=== PATIENT | male | born 1970 | race Caucasian/White ===

== ENCOUNTER 2017-12-09 20:45 | Emergency (ER) | payer OTHER ==
[~2017-12-09] VITALS: Ht 175.3 cm; Wt 129.3 kg
[~2017-12-09 20:45] MED LIST: AUGMENTIN 500-1 EACH PO; BENICAR HCT PO; COZAAR 50MG TAB50 MG PO; HALFPRIN162 MG PO; HYDRODIURIL 2525 MG PO; METOPROLOL SUC100 MG PO; NORVASC 10MG10 MG PO; PEPCID20 MG PO; PEPCID40 MG PO; REGLAN10 MG PO; TOPROL XL 100100 MG PO; TRIBENZOR 10 MG1 TA1 PO; [UNRECOGNIZED DRUG - OTHER] PO
--- NOTE | 2017-12-09 21:09 | ED DYSPNEA/ASTHMA COMPLAINT ---
History of Present Illness General Chief Complaint: Dyspnea (COPD, CHF, Other) Stated Complaint: SHORTNESS OF BREATH Source: patient, family, old records Exam Limitations: no limitations Vital Signs & Intake/Output Vital Signs & Intake/Output Vital Signs Date Time Temp Pulse Resp B/P B/P Pulse O2 O2 Flow FiO2 Mean Ox Delivery Rate 12/09 2229 97.3 80 18 180/95 93 Room Air 12/097 92 12/09 2058 98.4 90 24 178/112 94 Room Air ED Intake and Output 12/10 0000 12/09 1200 Intake Total Output Total Balance Patient 285 lb Weight Weight Reported by Patient Measurement Method Allergies Coded Allergies: NO KNOWN ALLERGIES (09/03/16) Reconcile Medications Albuterol Sulfate 2.5 MG/3 ML (0.083 %) VIAL.NEB 1 Vial INH/VERA Q4P PRN bronchitis Albuterol Sulfate (Proair Hfa) 90 MCG HFA.AER.AD 2 PUF INH Q4-6 PRN PRN bronchitis Amlodipine (Norvasc 10MG) 10 MG TABLET 1 TAB PO DAILY HYPERTENSIO Aspirin (Halfprin) 162 MG ECT 1 TAB PO DAILY heart health Augmentin (Augmentin 500-125 Tablet) 500 MG-125 MG TABLET 1 TAB PO BID dog bite Azithromycin 250 MG TABLET 1 DP PO AD bronchitis 2 the first day followed by 1 for days 2-5 Famotidine (Pepcid) 40 MG TABLET 40 MG PO D PRN HEARTBURN (Reported) Hydrochlorothiazide (Hydrodiuril 25 MG Tab) 25 MG TABLET 1 TAB PO DAILY HYPERTENSION Losartan (Cozaar) 50 MG TAB 1 TAB PO DAILY HYPERTENSION Methylprednisolone. (Medrol) 4 MG TAB.DS.PK 1 DP PO AD bronchitis 6 on day 1 then reduce by one tablet daily until gone Metoprolol Succ XL (Toprol Xl 100 MG) 100 MG TAB.ER.24H 100 MG PO DAILY HIGH BLOOD PRESSURE Metoprolol Succinate 100 MG TAB.ER.24H 1 TAB PO DAILY HTN (Reported) Triage Note: 47M REPORTS HACKING COUGH AND SOB X3 WEEKS, O2 SAT 94% RA. COUGH IS DRY. EYES ARE RED AND TEARY. TOOK DECONGESTANT YESTERDAY WITH RELIEF. DENIES CP, SOME LOWER ABDOMEN PAIN WITH COUGHING. -N/V/D. HYPERTENSIVE IN TRIAGE 178/112 MANUALLY. ON 3-4 ANTIHYPERTENSIVES, FOLLOWED BY DR EARL. AFEBRILE Triage Nurses Notes Reviewed? yes Onset: Abrupt Duration: week(s): (3), intermittent, waxing and waning Timing: recent history Severity: mild, moderate Activities at Onset: COUGHING Associated Symptoms: DENIES HPI: 47-year-old male with history of hypertension sleep apnea presents to ER for evaluation with 3 week history of a nonproductive cough associated with intermittent episodes of shortness of breath wheezing. Patient states that most recent episode occurred earlier this evening, after a coughing episode. He denies any sputum production or hemoptysis. No chest pain fever chills abdominal pain nausea vomiting diarrhea. He states he took a decongestant today and yesterday which was helping with his symptoms on arrival he states that he cannot take his labetalol or chlorthalidone. He does not smoke no underlying history of lung disease or asthma. (Chas Anthony) Past History Travel History Traveled to [place] past 21 day No Medical History Any Pertinent Medical History? see below for history Neurological: NONE EENT: NONE Cardiovascular: hypertension, hyperlipidemia Respiratory: obstructive sleep apnea, DOES NOT USE CPAP Gastrointestinal: NONE Hepatic: NONE Renal: NONE Musculoskeletal: NONE Psychiatric: NONE Endocrine: PRE-DIABETIC Blood Disorders: NONE Cancer(s): NONE MOUNTER CLARINETS/Reproductive: NONE Tetanus Vaccine: 09/03/16 Surgical History Surgical History: wisdom tooth removal Psychosocial History What is your primary language Martiniquais Tobacco Use: Never used ETOH Use: occasional use Illicit Drug Use: denies illicit drug use Family History Family History, If Any: MOTHER FH: diabetes mellitus FATHER FH: lung cancer Hx Contributory? No (Chas Anthony) Review of Systems Review of Systems Constitutional: Reports: see HPI. Comments Review of systems: See HPI, All other systems negative. Constitutional, no chills no fever, no malaise HEENT: no sore throat no congestion, no ear pain Cardiovascular: No chest pain , no palpitation Skin: no rashes, no change in skin Respiratory: SEE HPI GI: No nausea no vomiting, no diarrhea : No dysuria Muscle skeletal: No joint pain, no back pain Neurologic: , no headache Psych: No stress Heme/endocrine: No bruising (Chas Anthony) Physical Exam Physical Exam General Appearance: well developed/nourished, no apparent distress, alert Respiratory: decreased breath sounds Comments: Well-developed well-nourished person in no acute distress HEENT: Normal EENT exam; PERRL, EOMI, HEAD is atraumatic. moist mucous membranes. Neck: Supple, normal range of motion Back: Full range of motion Cardiovascular: Regular rate and rhythms no murmur, normal JVP Respiratory: Chest nontender.There were no bony deformities, no asymmetry. No respiratory distress. Patient speaking in full complete sentences. Diminished breath sounds bilaterally Abdomen: Soft, nontender nondistended, no appreciable organomegaly. Normal bowel sounds. No rebound/guarding Extremity: No edema, full range of motion of extremities Neuro: Alert oriented x3, motor sensory normal, There were no obvious focal neurologic abnormalities. Skin: No appreciable rash on exposed skin, skin is warm and dry. Psych: Mood and affect is normal, memory and judgment is normal. Core Measures ACS in differential dx? Yes CVA/TIA Diagnosis No Sepsis Present: No Sepsis Focused Exam Completed? No (Chito MESA,Chas) Progress Differential Diagnosis: AMI, bronchitis, CHF, COPD, pericarditis, pulmonary embolism, pneumonia, unstable angina, REACTIVE AIRWAY Plan of Care: Orders Procedure Date/time Status D-DIMER 12/09 2106 Complete RAPID VIRAL INFLUENZA A 12/09 2105 Complete TROPONIN LEVEL 12/09 2105 Complete LIPASE 12/09 2105 Complete HEPATIC FUNCTION PANEL 12/09 2105 Complete CBC WITHOUT DIFFERENTIAL 12/09 2105 Complete BASIC METABOLIC PANEL 12/09 2105 Complete AMYLASE 12/09 2105 Complete EKG 12/09 2100 Active Laboratory Tests 12/09/172116: Anion Gap 13, Estimated GFR > 60, BUN/Creatinine Ratio 25.7 H, Glucose 113 H, Calcium 9.6, Total Bilirubin 0.5, Direct Bilirubin 0.2, AST 48, ALT 86 H, Alkaline Phosphatase 72, Troponin I < 0.01, Total Protein 7.2, Albumin 4.6, Amylase 56, Lipase 68, D-Dimer High Sensitivty < 200, CBC w Diff NO MAN DIFF REQ , RBC 5.41, MCV 87.9, MCH 29.6, MCHC 33.7, RDW 13.4, MPV 8.6, Gran % 54.9, Lymphocytes % 32.1, Monocytes % 4.9, Eosinophils % 7.6 H, Basophils % 0.5, Absolute Granulocytes 4.4, Absolute Lymphocytes 2.6, Absolute Monocytes 0.4, Absolute Eosinophils 0.6, Absolute Basophils 0 Microbiology 12/09 2114 NASOPHARYN: Influenza Virus A & B Rapid Smear - COMP Labs ordered old records. Patient medicated with prednisone and DuoNeb and his blood pressure medications chest x-ray ordered case discussed with Dr. Joseph agrees with plan. 2219 patient reports feeling significantly improved after breathing treatment. Discussed with him at length all of his lab results to date and x-ray findings. D-dimer negative troponin negative patient has no chest pain symptoms are consistent with bronchitis reactive airway slight congestion on x-ray which patient will follow up with cardiology. Patient ambulatory around the emergency room with myself without any shortness of breath, or hypoxia pulse ox remained 92-93% lungs are clear to auscultation he reports feeling significantly improved and discussed with him plan of care need for close follow-up with his primary care physician and investment officer this week to continue taking all his medications otherwise as prescribed he feels comfortable with plan cleared for discharge Diagnostic Imaging: Viewed by Me: Radiology Read. Discussed w/RAD: Radiology Read. Radiology Impression: PATIENT: DERIK RAMSAY PRESENT AGE: 47 PATIENT ACCOUNT NO: [id number] : 72 LOCATION: [facility] ORDERING PHYSICIAN: Chas MESA SERVICE DATE: 12/09/17 EXAM TYPE: RAD - XRY-PORTABLE CHEST XRAY EXAMINATION: XR PORTABLE CHEST CLINICAL INFORMATION: Rule out pneumonia or CHF. COMPARISON: 2014 TECHNIQUE: Portable frontal view of the chest was obtained. FINDINGS: There is mild prominence of the pulmonary vasculature, no carmencita failure, probably mild congestion, costophrenic angles are sharp, there is no pneumothorax. No consolidation. IMPRESSION: Mild prominence of the pulmonary vasculature, probably mild congestion. No carmencita failure. No acute infiltrates. Consider follow-up chest PA and lateral patient's condition permits. DICTATED BY: Josias Seaman MD DATE/ TIME DICTATED:12/09/172157 HUMAN RESOURCES TEMP:JELENA DATE/TIME TRANSCRIBED: 12/09/172157 CONFIDENTIAL, DO NOT COPY WITHOUT APPROPRIATE AUTHORIZATION. < Electronically signed in Other Vendor System> SIGNED BY: Josias Seaman MD 12/09/172202 Initial ED EKG: normal intervals, normal p-waves, normal QRS complex, normal sinus rhythm Prior EKG: unchanged (04/2015) (Chas Anthony) Departure Departure Disposition: HOME OR SELF CARE Condition: Stable Clinical Impression Primary Impression: Bronchitis Referrals: Jesus Rich MD (PCP/Family) Additional Instructions: zpak, medrol dose bernadette as directed. proair inhaler as needed. albuterol nebulizer as discussed. follow up withyour pmd and investment officer this week. return to the er at anytime sooner if you have worsening of your symptoms despite medication or any other concerns Departure Forms: Customer Survey General Discharge Information Prescriptions: Current Visit Scripts Azithromycin 1 DP PO AD #6 TAB 2 the first day followed by 1 for days 2-5 Methylprednisolone. (Medrol) 1 DP PO AD #1 DP 6 on day 1 then reduce by one tablet daily until gone Albuterol Sulfate 1 Vial INH/VERA Q4P PRN bronchitis #50 Vial Albuterol Sulfate (Proair Hfa) 2 PUF INH Q4-6 PRN PRN bronchitis #1 INHAL (Chas Anthony) PA/CONDITIONER TUMBLER Co-Sign Statement Statement: ED Attending supervision documentation- [] I saw and evaluated the patient. I have also reviewed all the pertinent lab results and diagnostic results. I agree with the findings and the plan of care as documented in the PA's/CONDITIONER TUMBLER's documentation. [x] I have reviewed the ED Record and agree with the PA's/CONDITIONER TUMBLER's documentation. [] Additions or exceptions (if any) to the PAs/CONDITIONER TUMBLER's note and plan are summarized below: [] (Opal DIAZ,Shilo Vasquez) Critical Care Note Critical Care Note Critical Care Time: non-applicable (Chas Anthony)
[2017-12-09 21:33] LABS: ABSOLUTE BASOPHIL COUNT 0 /CUMM (0.0-0.2); ABSOLUTE EOSINOPHIL COUNT 0.6 /CUMM (0.0-0.7); ABSOLUTE GRANULOCYTE CT 4.4 /CUMM (1.4-6.5); ABSOLUTE LYMPH COUNT 2.6 /CUMM (1.2-3.4); ABSOLUTE MONOCYTE COUNT 0.4 /CUMM (0.10-0.60); BASOPHIL % 0.5 % (0.0-2.0); EOSINOPHIL % 7.6 % (0-5); GRANULOCYTE % 54.9 % (42.2-75.2); HEMATOCRIT 47.6 % (42-52); MEAN CORPUSCULAR HGB 29.6 PG (27.0-31.0); MEAN CORPUSCULAR HGB CONC 33.7 G/DL (33.0-37.0); MEAN CORPUSCULAR VOLUME 87.9 FL (80.0-94.0); MEAN PLATELET VOLUME 8.6 FL (7.4-10.4); PLATELET COUNT 211 /CUMM (130-400); RBC DISTRIBUTION WIDTH 13.4 % (11.5-14.5); RED BLOOD CELL CT 5.41 /CUMM (4.70-6.10)
--- NOTE | 2017-12-09 22:03 | RADIOLOGY REPORT ---
EXAMINATION: XR PORTABLE CHEST CLINICAL INFORMATION: Rule out pneumonia or CHF. COMPARISON: 2014 TECHNIQUE: Portable frontal view of the chest was obtained. FINDINGS: There is mild prominence of the pulmonary vasculature, no carmencita failure, probably mild congestion, costophrenic angles are sharp, there is no pneumothorax. No consolidation. IMPRESSION: Mild prominence of the pulmonary vasculature, probably mild congestion. No carmencita failure. No acute infiltrates. Consider follow-up chest PA and lateral patient's condition permits.
[2017-12-09 22:30] VITALS: BP 180/95
[2017-12-09] MEDS ORDERED: AZITHROMYCIN250 M1 PO (22:31)
[2017-12-09] MEDS ORDERED: MEDROL4 M2 PO (22:31)
[2017-12-09] MEDS ORDERED: ALBUTEROL2.5 MG/3 M INH/SOL (22:31)
[2017-12-09] MEDS ORDERED: PROAIR HFA8.5 GM INH (22:31)
== END 2017-12-09 22:37 ==
LOC: ERH 20:45
PROVIDERS: Pediatrics
DX: J40 Bronchitis, not specified as acute or chronic (principal)
CPT/HCPCS: 1263; 71045; 87804; 87804-59; 93005; 93010